=== PATIENT | female | born 1970 | race Caucasian/White ===

== ENCOUNTER 2017-01-17 20:23 | Emergency (ER) | payer MEDICARE, MEDICAID ==
[2017-01-17 22:46] VITALS: BP 144/84
--- NOTE | 2017-01-17 22:47 | ERNOTE ---
Upper Extremity HPI - General Extremities Pain Location: shoulder: left - pain and stiffness Time Seen by Provider: 01/17/17 22:32 Source: patient, family Exam Limitations: no limitations - Immun/Allergies/Home Medications Immunizations: IMMUNIZATION HX Immunizations Up to Date Yes History of Influenza Vaccine Yes Hx Pneumococcal Vaccination Yes Allergies/Adverse Reactions: Allergies Allergy/AdvReac Type Severity Reaction Status Date / Time No Known Allergies Allergy Verified 01/17/17 20:35 Home Medications: HOME MEDICATIONS glipiZIDE [Glucotrol] 5 mg PO BID 06/21/14 [Last Taken Unknown] metFORMIN HCL [Glucophage] 1,000 mg PO BIDWM 06/21/14 [Last Taken Unknown] Cyclobenzaprine HCl [Flexeril] 10 mg PO TID PRN #30 tab 01/17/17 [Last Taken Unknown] - History of Present Illness Narrative: Pt states she has pain in her left posterior shoulder and some into her left upper arm Occurred: other - 10 days ago she was lifting some totes Location of Incident: home Severity: moderate Method of Injury: Reports: no apparent injury Associated Symptoms: Reports: weakness, loss of power (lt arm) Review of Systems - Review of Systems Musculoskeletal: Present: See HPI. Absent: back pain, neck pain Skin: Absent: rash Neurological: Present: numbness, tingling - Patient's Past Medical History Patient History - Medical: Diabetes Type 2 Patient History - Cardiac/Respiratory: No pertinent hx Patient History - Cancer: No Hx of Cancer Patient History - Surgical Procedures: No surgical history Patient History - Other: None - Social History Living Situations: home Does anyone smoke in the home?: Yes Smoking Status: Current every day smoker Patient requests Smoking Cessation Consult: No Initiate information on Smoking Cessation: No Alcohol Use: none Drug Use: none - Immunizations Immunizations Up to Date: Yes Hx Pneumococcal Vaccination: Yes History of Influenza Vaccine: Yes Physical Exam - Physical Exam General Appearance: Present: wd/wn, alert, no apparent distress Neck: Present: normal inspection, nontender, supple, full range of motion, other - No pain with cervical compression or sidebending Respiratory: Present: no respiratory distress, no accessory muscle use Back Exam: Present: normal inspection, normal range of motion, no vertebral tenderness Extremity Exam: Present: normal range of motion, other - tenderness posterior shoulder along the spraspinatus, no weakness of shoulder muscles. some difficulty with getting patient to understand commands in muscle testing ED Progress - Vital Signs Vital Signs: Vital Signs 01/17/17 01/17/17 01/17/17 20:31 21:17 21:41 Temperature 36.3 C L Pulse Rate 108 H 91 77 Respiratory 20 18 18 Rate Blood Pressure 175/93 147/86 138/83 O2 Sat by Pulse 96 98 96 Oximetry - Progress/Reassessment Chief Complaint: Shoulder Injury/Pain Departure Clinical Impression: Left shoulder strain Qualifiers: Encounter type: initial encounter Qualified Code(s): S46.912A - Strain of unspecified muscle, fascia and tendon at shoulder and upper arm level, left arm , initial encounter - Departure Disposition: Home Follow Up Needed Condition: Good Instructions: Tendon Injury, Cryotherapy Additional Instructions: Take ibuprofen 2 tabs 3 times a day for 7-10 days. Use ice to the sore area of the shoulder. Follow up with your regular doctor if not improving Referrals: Blanca Solomon MD [Primary Care Provider] - Prescriptions: Cyclobenzaprine HCl [Flexeril] 10 mg PO TID PRN #30 tab PRN Reason: MUSCLE SPASMS
[2017-01-17] MEDS ORDERED: CYCLOBENZAPRINE HCL 10 MG TABLET ONE (22:52)
[2017-01-17] MEDS ORDERED: CYCLOBENZAPRINE HCL 10 MG TABLET PO ONE (22:52)
== END 2017-01-17 22:58 | disposition home or self-care (01) ==
LOC: ER 20:23
DX: S46.912A Strain of unspecified muscle, fascia and tendon at shoulder and upper arm level, left arm, initial encounter (principal); X50.9XXA Other and unspecified overexertion or strenuous movements or postures, initial encounter; Y93.9 Activity, unspecified; Y92.009 Unspecified place in unspecified non-institutional (private) residence as the place of occurrence of the external cause; Z72.0 Tobacco use; E11.9 Type 2 diabetes mellitus without complications

== ENCOUNTER 2017-04-20 11:22 | Day surgery (SDC) | payer MEDICARE, MEDICAID ==
--- NOTE | 2017-04-20 12:00 | OR ---
Anesthesia Pre Procedure Eval Pre Procedure Evaluation: Last Vital Signs Temp 36.4 C L 04/20/17 11:35 Pulse 81 04/20/17 11:35 Resp 16 04/20/17 11:35 BP 189/99 04/20/17 11:35 Pulse Ox 98 04/20/17 11:35 PRE PROCEDURE EVALUATION:: DATE: 04/20/2017 TIME: 1155 INDICATIONS: Radicular cervical neck pain. Herniated disc C6 7. PAST MEDICAL HISTORY: No previous epidural straight injections. EXAM: Lungs clear and equal. Heart rate regular. Patient complains of shoulder pain that radiates into her arm and into her hand. She complains of some numbness in her left hand and fingers. ASSESSMENT OF MEDICAL STATUS: Procedure risks and benefits were explained to and accepted by the patient. No contraindication to cervical epidural straight injection. PLANNED PROCEDURE : Fluoroscopy-guided cervical epidural sterile injection at C6 7. Home Medications: HOME MEDICATIONS metFORMIN HCL [Glucophage] 1,000 mg PO BIDWM 06/21/14 [Last Taken Unknown] ALPRAZolam [Xanax] 0.25 - 0.5 mg PO Q8H PRN 04/19/17 [Last Taken Unknown] Blood-Glucose Meter [Blood Glucose Monitoring] 1 each MC DAILY 04/19/17 [Last Taken Unknown] Fluticasone Propionate [Flonase] 2 spray NS DAILY PRN 04/19/17 [Last Taken Unknown] Loratadine [Claritin] 10 mg PO DAILY 04/19/17 [Last Taken Unknown] Naproxen Sodium [Aleve] 220 mg PO BID 04/19/17 [Last Taken Unknown] SUMAtriptan SUCCINATE [Imitrex] 50 mg PO DAILY PRN 04/19/17 [Last Taken Unknown] glipiZIDE [Glucotrol] 10 mg PO BIDAC 04/19/17 [Last Taken Unknown] Nicotine Polacrilex [Nicorette] 2 mg BC DAILY 04/20/17 [Last Taken Unknown]
[2017-04-20] MEDS ORDERED: DEXAMETHASONE SOD PHOSPHATE 10 MG/ML VIAL IJ ONE (12:40)
[2017-04-20] MEDS ORDERED: IOPAMIDOL 20 ML VIAL IJ ONE (12:41)
[2017-04-20] MEDS ORDERED: LIDOCAINE HCL/PF 5 ML VIAL IJ ONE (12:41)
--- NOTE | 2017-04-20 12:59 | OR ---
Anesthesia Procedure Note - Anesthesia Procedure Note Narrative: Vital Signs - Last Taken Temp 36.4 C L 04/20/17 11:35 Pulse 81 04/20/17 11:35 Resp 16 04/20/17 11:35 BP 189/99 04/20/17 11:35 Pulse Ox 98 04/20/17 11:35 04/20/17 12:55 ANESTHESIA PROCEDURE NOTE Date of procedure: 04/20/2017. Time of procedure: 1245. Performed by: Chandra Merrill CRNA [employer]: Itzel Goldman RN . Preprocedure diagnosis: Cervical neck pain. Radicular in nature. Left arm numbness and tingling. Numbness in left fingers.. Post procedure diagnosis: Same. Procedure: Fluoroscopy-guided cervical epidural steroid injection at C7-T1. Indications: Radicular cervical pain. Findings: Patient brought to operating room #2 and placed in a prone position. Back of neck was prepped with DuraPrep and draped sterilely. Fluoroscopy was used to identify the C7-T1 interspace. Skin and subcutaneous tissue was infiltrated with 5 mL of 1% Xylocaine at the C7-T1 interspace. A 22-gauge Touhy epidural needle was used to identify epidural space using loss-of- resistance technique. 1.5 mL of Isovue-200 contrast dye was injected to confirm epidural needle placement. 10 mg of dexamethasone and 5 mg 1% preservative-free lidocaine was injected into the epidural space. Epidural needle was removed intact. A Band-Aid was applied to the puncture site. Total fluoroscopy time 12.9 seconds. Total dose 2.48 m/gy EBL: Minimal. Fluids: N/A. Specimen: N/A. Post procedure condition: The patient tolerated the procedure well. No complications were noted. Thank you for this consultation Chandra Merrill CRNA
[2017-04-20 13:31] VITALS: BP 157/92
== END 2017-04-20 11:23 | disposition home or self-care (01) ==
LOC: AMB 11:22
PROVIDERS: ATTEND Orthopaedic Surgery Orthopaedic Surgery of the Spine
PROC: 3E0S3BZ Introduction of Anesthetic Agent into Epidural Space, Percutaneous Approach (ICD-10-PCS; 2017-04-20)
PROC: 3E0S33Z Introduction of Anti-inflammatory into Epidural Space, Percutaneous Approach (ICD-10-PCS; principal; 2017-04-20 12:00)
DX: M54.2 Cervicalgia (principal); R20.2 Paresthesia of skin

== ENCOUNTER 2018-08-22 15:35 | Observation (INO) | payer MEDICAID, MEDICARE ==
[2018-08-22] MEDS ORDERED: ADENOSINE 3 MG/ML DISP.SYRIN IV ONE (15:48)
--- NOTE | 2018-08-22 15:48 | ERNOTE ---
Dizziness ER Record Presenting Symptoms: dizziness Time Seen by Provider: 08/22/18 15:40 Source: patient Exam Limitations: no limitations Immunizations: IMMUNIZATION HX Immunizations Up to Date Yes History of Influenza Vaccine Yes Hx Pneumococcal Vaccination Yes Allergies/Adverse Reactions: Allergies Allergy/AdvReac Type Severity Reaction Status Date / Time No Known Allergies Allergy Verified 08/22/18 15:49 Home Medications: HOME MEDICATIONS metFORMIN HCL [Glucophage] 1,000 mg PO BIDWM 06/21/14 [Last Taken 08/22/18 09:00] Blood-Glucose Meter [Blood Glucose Monitoring] 1 ea MC DAILY 04/19/17 [Last Taken 08/22/18 01:00] Fluticasone Propionate [Flonase] 2 spray NS DAILY PRN 04/19/17 [Last Taken Unknown] Loratadine [Claritin] 10 mg PO DAILY PRN 04/19/17 [Last Taken Unknown] glipiZIDE [Glucotrol] 10 mg PO BIDAC 04/19/17 [Last Taken 08/22/18 09:00] alprazolam 0.5 mg tablet 0.25 - 0.5 mg PO Q8H PRN #30 tab 05/28/18 [Last Taken Unknown] Melatonin 10 mg PO HS 08/22/18 [Last Taken 08/21/18 21:00] - History of Present Illness Narrative: Patient had just left the store when she started to feel dizzy, went home and when symptoms persisted she came to the ER. She denies any palpitation, admits to chest pressure. She denies any other symptoms or significant recent problems, smokes, one soda a day, no drug use she is a diabetic and admits to not being very compliant with her diet over the holidays Date (Duration): 08/22/18 Time (Timing): 12:45 Timing and Duration: sudden onset Severity: max: mild Severity: currently: mild Associated Symptoms: Present: light headedness. Absent: hearing loss Usually:: Present: walks w/o assistance Modifying Factors - (Improves): Reports: nothing Modifying Factors - (Worsens): Reports: nothing Prior Treament: Denies: recently seen, similar symptoms before Review of Systems - Review of Systems Constitutional: Absent: recent illness, fever EYE: Absent: vision changes ENT: Absent: nose congestion, sore throat Respiratory: Absent: shortness of breath Cardiology: Present: See HPI, chest pain. Absent: palpitations Gastrointestinal/Abdominal: Absent: nausea, abdominal pain Genitourinary: Present: no symptoms reported Musculoskeletal: Absent: back pain Neurological: Present: dizziness/light-headedness. Absent: headache Medical History (Last Reviewed 08/22/18 @ 16:16 by Vandana Gauthier MD) Learning disability (Chronic) Onset Date: Unknown Diabetes mellitus type 2, noninsulin dependent (Chronic) Onset Date: Unknown Anxiety (Chronic) Onset Date: Unknown Surgical History: Surgical History (Last Reviewed 08/22/18 @ 16:16 by Vandana Gauthier MD) History of total right knee replacement Family History: Family History (Last Reviewed 08/22/18 @ 15:49 by Clement Hinkle RN) Father Alive and well Mother Alive and well Social History: Preferred Language Venezuelan (Last Updated 05/28/18 @ 15:06 by Blanca Solomon MD) No Social History Section defined Physical Exam - Physical Exam General Appearance: Present: wd/wn, alert, no apparent distress, anxious Respiratory: Present: no respiratory distress, normal breath sounds, chest nontender, lungs clear Cardiovascular/Chest: Present: no murmur, tachycardia Gastrointestinal/Abdominal: Present: normal bowel sounds, nontender, nondistended, soft Extremity Exam: Present: no edema Neurological Exam: Present: alert, oriented, normal mood/affect Skin Exam: Present: normal color, warm/dry Progress - Results and Orders Patient's Lab Results:: I have reviewed the patient's lab results. - Vital Signs Patient's Vital Signs:: I have reviewed the patient's vital signs. Vital Signs: Vital Signs 08/22/18 15:38 Temperature 36.1 C Pulse Rate 182 H Respiratory Rate 20 Blood Pressure 104/73 - EKG EKG: nonspecific ST T wave changes, other - SVTs at 182bpm EKG read: Interp. by me - X-Ray X-Ray #1 X-Ray: chest - no acute changes Interpretation: Interp. by me - Progress/Reassessment Chief Complaint: Dizziness Progress Note-Subjective: 08/22/18 15:54 repeat EKG after adenosine sinus tachycardia 08/22/18 17:17 patient feeling much better, no chest pain , HR high 90's discussed test results and recommended admission, patient and family agreed 08/22/18 17:18 discussed with sangeetha Nava to admit for observation for SVTs and hyperglycemia give 10 Units of insulin IV Departure Clinical Impression: SVT (supraventricular tachycardia), Diabetes mellitus type 2, noninsulin dependent, Hyperglycemia Chest pain Qualifiers: Chest pain type: unspecified Qualified Code(s): R07.9 - Chest pain, unspecified - Departure Disposition: Still a patient Condition: Stable
[2018-08-22 16:09] LABS: Hematocrit 46.8 % (37.0-47.0); Hemoglobin 16.8 gm/dL (12.5-16.0); Mean Cell Volume 87.8 fl (78-100); Mean Corpuscular Hemoglobin 31.5 pg (27-31); Mean Corpuscular Hgb Conc 35.9 g/dl (32-36); Mean Platelet Volume 11.7 fl (8-12.5); Neutrophil # 10.2 K/mm3 (1.3-6.0); Neutrophil % 74.3 % (42-75.0); Platelet Count 255 K/mm3 (150-450); Red Blood Count 5.33 M/mm3 (4.2-5.4); Red Cell Distribution Width 12.4 % (11.5-14.0); White Blood Count 13.7 K/mm3 (4.0-10.5)
[2018-08-22 16:25] LABS: Troponin I Less than 0.017 ng/mL (0.00-0.10)
[2018-08-22 16:38] LABS: ALT 53 U/L (19-67); AST 39 U/L (0-48); Albumin * 3.3 gm/dl (3.4-5.0); Alkaline Phosphatase * 96 U/L (50-170); Anion Gap 15.8 mmol/L (6.8-13.8); BUN/Creatinine Ratio 15.4 (9.0-21.6); Bilirubin, Total 0.4 mg/dL (0.0-1.1); Blood Urea Nitrogen 16 mg/dL (3-23); Ca. Corrected For Albumin 9.2 mg/dL (8.4-10.2); Carbon Dioxide 25.1 mmol/L (24-32.6); Chloride 99 mmol/L (97-106); Glucose * 585 mg/dL (70-110); Potassium 3.9 mmol/L (3.4-4.6); Sodium 136 mmol/L (132-142)
[2018-08-22 17:10] LABS: Urine Bilirubin Negative (NEGATIVE); Urine Blood Negative /ul (NEGATIVE); Urine Ketone Negative (NEGATIVE); Urine Nitrite Negative (NEGATIVE); Urine Protein 30 mg/dL (NEGATIVE); Urine Urobilinogen Normal (NORMAL)
[2018-08-22] MEDS ORDERED: INSULIN LISPRO 100 UNITS/ML VIAL IV ONE (17:23)
[2018-08-22] MEDS ORDERED: ASPIRIN 81 MG TAB.CHEW PO STA (17:28)
[2018-08-22 17:32] LABS: Urine Appearance Clear (CLEAR); Urine Color Yellow
[2018-08-22 17:33] LABS: Urine Bacteria TRACE; Urine RBC None Seen /hpf (0-5); Urine WBC 0-5 /hpf (0-5)
[2018-08-22] MEDS ORDERED: LORATADINE 10 MG TABLET PO PRN (20:08)
[2018-08-22] MEDS ORDERED: FLUTICASONE PROPIONATE 120 SPRAY INHALER NS PRN (20:08)
[2018-08-22] MEDS ORDERED: ALPRAZolam 0.5 MG TABLET PO PRN (20:08)
--- NOTE | 2018-08-22 20:23 | HP ---
Chief Complaint - Chief Complaint Date of Service: 08/22/18 Time of Service: 20:00 Chief Complaint: dizziness History of Present Illness: Patient with PMHx of diabetes reported feeling some dizziness and upper chest tightness earlier today. She took a meclizine to see if that would help her symptoms, without improvement. She also tried some of her boyfriend's ventolin, which also didn't help. Her diabetes is controlled with oral medications. She reports checking her blood sugar at home, and her machine read 150. Here in the ED, her glucose was greater than 500, so she is wondering if her home glucometer is unreliable. She has not had recent illness or received any steroids lately. On arrival, her heart rate was in the 180's, and she was given adenosine, and her heart rate improved to sinus rhythm. She states her chest tightness is no longer present. Has never been hospitalized for diabetes in the past. Medical History (Last Reviewed 08/22/18 @ 18:51 by Yen Rendon RN) Learning disability (Chronic) Onset Date: Unknown Diabetes mellitus type 2, noninsulin dependent (Chronic) Onset Date: Unknown Anxiety (Chronic) Onset Date: Unknown Surgical History: Surgical History (Last Updated 08/22/18 @ 18:52 by Yen Rendon RN) H/O arthroscopy of right knee History of total right knee replacement Family History: Family History (Last Reviewed 08/22/18 @ 15:49 by Clement Hinkle RN) Father Alive and well Mother Alive and well Social History: Patient Lives/Resources Home Utilized Occupation none Preferred Language Colombian Do you have any sikhism or Yes: Rastafarian cultural preference? Smoking Status Current every day smoker Have you smoked in the past 12 Yes months Do you dip or chew tobacco No Alcohol Use none Drug Use none (Last Updated 05/28/18 @ 15:06 by Blanca Solomon MD) No Social History Section defined Review Of Systems (GEN) - Review of Systems Generalized/Overall Review: Absent: Fever EENTM: Absent: Nose Congestion Respiratory: Absent: Cough, Shortness of Breath Cardiac: Present: Other - chest tightness. Absent: Edema Abdominal: Absent: Vomiting, Diarrhea Genitourinary: Absent: Dysuria Skin: Absent: Lesions Immunizations: IMMUNIZATION HX Immunizations Up to Date Yes History of Influenza Vaccine No Hx Pneumococcal Vaccination No Allergies/Adverse Reactions: Allergies Allergy/AdvReac Type Severity Reaction Status Date / Time No Known Allergies Allergy Verified 08/22/18 15:49 Home Medications: HOME MEDICATIONS metFORMIN HCL [Glucophage] 1,000 mg PO BIDWM 06/21/14 [Last Taken 08/22/18 09:00] Blood-Glucose Meter [Blood Glucose Monitoring] 1 ea MC DAILY 04/19/17 [Last Taken 08/22/18 01:00] Fluticasone Propionate [Flonase] 2 spray NS DAILY PRN 04/19/17 [Last Taken Unknown] Loratadine [Claritin] 10 mg PO DAILY PRN 04/19/17 [Last Taken Unknown] glipiZIDE [Glucotrol] 10 mg PO BIDAC 04/19/17 [Last Taken 08/22/18 09:00] alprazolam 0.5 mg tablet 0.25 - 0.5 mg PO Q8H PRN #30 tab 05/28/18 [Last Taken Unknown] Melatonin 10 mg PO HS 08/22/18 [Last Taken 08/21/18 21:00] Exam - Exam Vital Signs: Vital Signs - Last Taken Temp 36.8 C 08/22/18 18:00 Pulse 93 08/22/18 18:00 Resp 20 08/22/18 18:00 BP 162/90 H 08/22/18 18:00 Pulse Ox 95 08/22/18 18:00 Constitutional: Present: Alert, Oriented x3, Cooperative, Well developed, Obese Eye Exam: left eye: other - left eyelid droop, chronic per patient Respiratory: Present: normal breath sounds, no respiratory distress Cardiovascular/Chest: Present: regular rate, rhythm Abdomen: Present: soft, nontender, obese Neurologic: Present: normal mood/affect Appearance: Present: impaired insight Eye contact: Present: cooperative, good eye contact Thoughts: Present: other - somewhat tangential Diagnostic Studies: Abnormal Lab Results 08/22/18 08/22/18 08/22/18 Range/Units 16:03 16:03 17:01 WBC 13.7 H (4.0-10.5) K/mm3 Hgb 16.8 H (12.5-16.0) gm/dL MCH 31.5 H (27-31) pg Immature Gran % (Auto) 0.60 H (0.001-0.429) % Immature Gran # (Auto) 0.08 H (0.000-0.0310) K/mm3 Lymphocytes % 18.2 L (20-51) % Neutrophils # 10.2 H (1.3-6.0) K/mm3 Plasma Sodium 144 H (130-142) mmol/L Anion Gap 15.8 H (6.8-13.8) mmol/L Random Glucose 585 H* (70-110) mg/dL Albumin 3.3 L (3.4-5.0) gm/dl Urine Protein 30 H (NEGATIVE) mg/dL Urine Glucose (UA) >=1000 H (NEGATIVE) mg/dL Laboratory Results WBC 13.7 K/mm3 (4.0-10.5) H 08/22/18 16:03 RBC 5.33 M/mm3 (4.2-5.4) 08/22/18 16:03 Hgb 16.8 gm/dL (12.5-16.0) H 08/22/18 16:03 Hct 46.8 % (37.0-47.0) 08/22/18 16:03 MCV 87.8 fl (78-100) 08/22/18 16:03 MCH 31.5 pg (27-31) H 08/22/18 16:03 MCHC 35.9 g/dl (32-36) 08/22/18 16:03 RDW 12.4 % (11.5-14.0) 08/22/18 16:03 Plt Count 255 K/mm3 (150-450) 08/22/18 16:03 MPV 11.7 fl (8-12.5) 08/22/18 16:03 Immature Gran % (Auto) 0.60 % (0.001-0.429) H 08/22/18 16:03 Immature Gran # (Auto) 0.08 K/mm3 (0.000-0.0310) H 08/22/18 16:03 Neutrophils % 74.3 % (42-75.0) 08/22/18 16:03 Lymphocytes % 18.2 % (20-51) L 08/22/18 16:03 Monocytes % 5.0 % (0.0-9) 08/22/18 16:03 Eosinophils % 1.2 % (0.0-3.0) 08/22/18 16:03 Basophils % 0.7 % (0.0-1.0) 08/22/18 16:03 Nucleated RBC % 0.0 k/mm3 (0-1) 08/22/18 16:03 Neutrophils # 10.2 K/mm3 (1.3-6.0) H 08/22/18 16:03 Lymphocytes # 2.50 k/mm3 (1.5-3.5) 08/22/18 16:03 Monocytes # 0.7 k/mm3 (0.0-1.0) 08/22/18 16:03 Eosinophils # 0.2 k/mm3 (0.0-0.7) 08/22/18 16:03 Absolute Basophils 0.1 k/mm3 (0.0-0.1) 08/22/18 16:03 VBG pH 7.375 (7.32-7.43) 08/22/18 16:51 Sodium 136 mmol/L (132-142) 08/22/18 16:03 Plasma Sodium 144 mmol/L (130-142) H 08/22/18 16:03 Potassium 3.9 mmol/L (3.4-4.6) 08/22/18 16:03 Chloride 99 mmol/L (97-106) 08/22/18 16:03 Carbon Dioxide 25.1 mmol/L (24-32.6) 08/22/18 16:03 Anion Gap 15.8 mmol/L (6.8-13.8) H 08/22/18 16:03 BUN 16 mg/dL (3-23) 08/22/18 16:03 Creatinine 1.04 mg/dL (0.4-1.4) 08/22/18 16:03 Est GFR (Non-Af Amer) 60 mL/min (60-130) D 08/22/18 16:03 BUN/Creatinine Ratio 15.4 (9.0-21.6) 08/22/18 16:03 Random Glucose 585 mg/dL (70-110) H* 08/22/18 16:03 Calcium 9.0 mg/dL (7.9-10.9) 08/22/18 16:03 Calcium Adj for Albumin 9.2 mg/dL (8.4-10.2) 08/22/18 16:03 Total Bilirubin 0.4 mg/dL (0.0-1.1) 08/22/18 16:03 AST 39 U/L (0-48) 08/22/18 16:03 ALT 53 U/L (19-67) 08/22/18 16:03 Alkaline Phosphatase 96 U/L (50-170) 08/22/18 16:03 Troponin I Less than 0.017 ng/mL (0.00-0.10) 08/22/18 16:03 Total Protein 7.0 gm/dL (6.2-8.2) 08/22/18 16:03 Albumin 3.3 gm/dl (3.4-5.0) L 08/22/18 16:03 TSH 0.925 uIU/mL (0.358-3.74) 08/22/18 16:03 Urine Color Yellow 08/22/18 17:01 Urine Appearance Clear (CLEAR) 08/22/18 17:01 Urine pH 6.0 pH (5.0-7.0) 08/22/18 17:01 Ur Specific Marshall 1.010 SP.GR. (1.005-1.010) 08/22/18 17:01 Urine Protein 30 mg/dL (NEGATIVE) H 08/22/18 17:01 Urine Glucose (UA) >=1000 mg/dL (NEGATIVE) H 08/22/18 17:01 Urine Ketones Negative mg/dL (NEGATIVE) 08/22/18 17:01 Urine Blood Negative /ul (NEGATIVE) 08/22/18 17:01 Urine Nitrate Negative (NEGATIVE) 08/22/18 17:01 Urine Bilirubin Negative mg/dl (NEGATIVE) 08/22/18 17:01 Prot Sulfosalicylic Acd 1+ mg/dL (0) 08/22/18 17:01 Urine Urobilinogen Normal EU/dl (NORMAL) 08/22/18 17:01 Ur Leukocyte Esterase Negative /ul (NEGATIVE) 08/22/18 17:01 Urine RBC None seen /hpf (0-5) 08/22/18 17:01 Urine WBC 0-5 /hpf (0-5) 08/22/18 17:01 Ur Epithelial Cells 0-5 /hpf (0-5) 08/22/18 17:01 Urine Bacteria Trace (NONE) 08/22/18 17:01 Urine Culture Comments No culture indicated 08/22/18 17:01 Serum Ketones Negative (NEGATIVE) 08/22/18 16:03 Assessment/Plan - Assessment/Plan (1) SVT (supraventricular tachycardia) Assessment: May have been secondary to her blood glucose of 585. Improved after adenosine. Continue telemetry. If she were to have persistent HR greater than 100, will add 25 mg metoprolol. Initial troponin negative, repeat pending. If chest tightness were to recur, will repeat serial EKGs. Problem: Acute (2) Hyperglycemia Assessment: Patient does not believe her glucose has been greater than 500 on the past. Is not in DKA. She was given 10 U humalog IV in the ED, and she is receiving SSI. Will continue to monitor her insulin requirements. May need to DC with long acting insulin. Most recent blood glucose was 400 two hours ago. Glucose checks with meals and bedtime. She admits to having a poor diet with lots of sweets lately, but it is more likely that her diabetes is progressing, and this is the source of her very elevated glucose. Problem: Acute (3) Diabetes mellitus type 2, noninsulin dependent Assessment: Continue home metformin, glipizide. Would strongly prefer to obtain A1C to help determine if she requires insulin on discharge, but she is in observation status, and unable to order this in [facility]. "Learning disability" is listed on her problem list, and she may not have the ability to properly administer sliding scale insulin without supervision. Problem: Chronic (4) Anxiety Assessment: continue home prn xanax. Melatonin for sleep. Problem: Chronic
[2018-08-22] MEDS ORDERED: MELATONIN 3,000 MCG TABLET PO SCH (21:00)
[2018-08-22] MEDS: INSULIN LISPRO 100 UNITS/ML VIAL SC SCH (21:36)
[2018-08-22] MEDS ORDERED: IBUPROFEN 400 MG TABLET PO PRN (21:55)
[2018-08-22] MEDS ORDERED: IBUPROFEN 400 MG TABLET ONE (22:01)
[2018-08-23] MEDS ORDERED: ALPRAZolam 0.5 MG TABLET PO PRN (06:30)
[2018-08-23] MEDS ORDERED: INSULIN LISPRO 100 UNITS/ML VIAL SC SCH (07:00)
[2018-08-23] MEDS ORDERED: glipiZIDE 10 MG TABLET PO SCH (07:00)
[2018-08-23] MEDS: INSULIN LISPRO 100 UNITS/ML VIAL SC SCH ×2 (07:44→11:57)
[2018-08-23 08:13] LABS: Hemoglobin A1C 9.5 % (4.00-6.0)
--- NOTE | 2018-08-23 10:11 | PN ---
Subjective - Date and Time Seen Date: 08/23/18 Time: 09:54 Objective - Review of Systems Generalized/Overall Review: Denies: Fever Respiratory: Denies: Shortness of Breath Cardiac: Denies: Chest Pain, Palpitations Abdominal: Denies: Vomiting, Abdominal Pain Genitourinary Symptoms: Denies: Dysuria - Vitals Vitals: Last Vital Signs Temp 36.1 C 08/23/18 07:00 Pulse 78 08/23/18 07:00 Resp 16 08/23/18 07:00 BP 145/75 H 08/23/18 07:00 Pulse Ox 93 08/23/18 07:00 - Abnormal Lab Findings Abnormal Lab Findings: Abnormal Lab Results 08/22/18 08/22/18 08/22/18 Range/Units 07:45 16:03 16:03 WBC 13.7 H (4.0-10.5) K/mm3 Hgb 16.8 H (12.5-16.0) gm/dL MCH 31.5 H (27-31) pg Immature Gran % (Auto) 0.60 H (0.001-0.429) % Immature Gran # (Auto) 0.08 H (0.000-0.0310) K/mm3 Lymphocytes % 18.2 L (20-51) % Neutrophils # 10.2 H (1.3-6.0) K/mm3 Plasma Sodium 144 H (130-142) mmol/L Anion Gap 15.8 H (6.8-13.8) mmol/L Random Glucose 585 H* (70-110) mg/dL Hemoglobin A1c 9.5 H (4.00-6.0) % Albumin 3.3 L (3.4-5.0) gm/dl Urine Protein (NEGATIVE) mg/dL Urine Glucose (UA) (NEGATIVE) mg/dL 08/22/18 Range/Units 17:01 WBC (4.0-10.5) K/mm3 Hgb (12.5-16.0) gm/dL MCH (27-31) pg Immature Gran % (Auto) (0.001-0.429) % Immature Gran # (Auto) (0.000-0.0310) K/mm3 Lymphocytes % (20-51) % Neutrophils # (1.3-6.0) K/mm3 Plasma Sodium (130-142) mmol/L Anion Gap (6.8-13.8) mmol/L Random Glucose (70-110) mg/dL Hemoglobin A1c (4.00-6.0) % Albumin (3.4-5.0) gm/dl Urine Protein 30 H (NEGATIVE) mg/dL Urine Glucose (UA) >=1000 H (NEGATIVE) mg/dL - Exam Constitutional: Present: Alert, Oriented x3, Cooperative, Obese Respiratory: Present: normal breath sounds, no respiratory distress Cardiovascular/Chest: Present: regular rate, rhythm Abdomen: Present: soft, nontender, obese Extremity: Absent: lower extremity edema Eye contact: Present: other - mild left eyelid droop Assessment/Plan - Problems/Diagnosis (1) SVT (supraventricular tachycardia) Problem: Resolved Narrative: Improved after adenosine in the ED, and has not recurred. Likely secondary to very elevated blood glucose. (2) Hyperglycemia Problem: Acute Narrative: Improved after 10 U humalog IV in the ED, and SC SSI overnight. Has received 10 U SC humalog, making her total insulin 10 U over approximately 16 hours. (3) Diabetes mellitus type 2, noninsulin dependent Problem: Chronic Narrative: She is prescribed metformin and glipizide at home. Her A1C is 9.5%, indicating she needs insulin for more diabetic control. Discussed with her this morning, and she is not sure if she would be able to give herself insulin, and her boyfriend feels like she is too shaky. [employer] consult placed for education regarding better food choices. Will DC with a simple regimen, 10 U lantus daily, and have her follow up with her PCP. Insulin is necessary to avoid sequela. Her daily dose will likely be higher. (4) Anxiety Problem: Chronic Narrative: Continue home xanax.
--- NOTE | 2018-08-23 10:20 | DS ---
(1) SVT (supraventricular tachycardia) Problem: Resolved (2) Hyperglycemia Problem: Acute (3) Diabetes mellitus type 2, noninsulin dependent Problem: Chronic (4) Anxiety Problem: Chronic Description of Stay: Patient with PMHx of type II diabetes on oral meds, anxiety, and a learning disability reported feeling some dizziness and upper chest tightness. She took a meclizine to see if that would help her symptoms, without improvement. She also tried some of her boyfriend's ventolin, which also didn't help. She reported checking her blood sugar at home, and her machine read 150. In the ED, her glucose was greater than 500, so she is wondering if her home glucometer is unreliable. She had not had recent illness or received any steroids lately. On arrival, her heart rate was in the 180's, and she was given adenosine, and her heart rate improved to sinus rhythm, and chest tightness resolved and did not recur. Her blood glucose was decrease slowly with 10 U IV humalog, and low dose sliding scale insulin. She was given a total of 10 U insulin during her stay. A1C was 9.5%, and discussed starting daily insulin with her. [employer] referral placed to discuss better food choices. Will DC with 10 U lantus daily, and have her check her glucose 3 times a day initially. She felt comfortable going home on the day of discharge. Procedures Performed: none Results and Findings: Lab Pending Results 08/22/18 07:45: Mean Blood Glucose 230, Hemoglobin A1c 9.5 H 08/22/18 16:03: WBC 13.7 H, RBC 5.33, Hgb 16.8 H, Hct 46.8, MCV 87.8, MCH 31.5 H, MCHC 35.9, RDW 12.4, Plt Count 255, MPV 11.7, Immature Gran % (Auto) 0.60 H, Immature Gran # (Auto) 0.08 H, Neutrophils % 74.3, Lymphocytes % 18.2 L, Monocytes % 5.0, Eosinophils % 1.2, Basophils % 0.7, Nucleated RBC % 0.0, Neutrophils # 10.2 H, Lymphocytes # 2.50, Monocytes # 0.7, Eosinophils # 0.2, Absolute Basophils 0.1 08/22/18 16:03: Sodium 136, Plasma Sodium 144 H, Potassium 3.9, Chloride 99, Carbon Dioxide 25.1, Anion Gap 15.8 H, BUN 16, Creatinine 1.04, Est GFR (Non-Af Amer) 60 D, BUN/Creatinine Ratio 15.4, Random Glucose 585 H*, Calcium 9.0, Calcium Adj for Albumin 9.2, Total Bilirubin 0.4, AST 39, ALT 53, Alkaline Phosphatase 96, Troponin I Less than 0.017, Total Protein 7.0, Albumin 3.3 L 08/22/18 16:03: TSH 0.925 08/22/18 16:03: Serum Ketones Negative 08/22/18 16:51: VBG pH 7.375 08/22/18 17:01: Urine Color Yellow, Urine Appearance Clear, Urine pH 6.0, Ur Specific [place] 1.010, Urine Protein 30 H, Urine Glucose (UA) >=1000 H, Urine Ketones Negative, Urine Blood Negative, Urine Nitrate Negative, Urine Bilirubin Negative, Prot Sulfosalicylic Acd 1+, Urine Urobilinogen Normal, Ur Leukocyte Esterase Negative, Urine RBC None seen, Urine WBC 0-5, Ur Epithelial Cells 0-5, Urine Bacteria Trace, Urine Culture Comments No culture indicated 08/22/18 23:30: Troponin I 0.085 Discharge Location: Home Disposition: Home self-care Condition: Stable Discharge Activity: Activity as tolerated Discharge Diet: Consistent carbs Referrals: Blanca Solomon MD [Primary Care Provider] - Prescriptions (Any new or edited meds): Insulin Glargine,Hum.rec.anlog [Lantus Solostar] 10 unit SQ DAILY #7 insuln.pen Complete Home Medications List: Complete Home Medication List: metFORMIN HCL [Glucophage] 1,000 mg PO BIDWM 06/21/14 Blood-Glucose Meter [Blood Glucose Monitoring] 1 ea MC DAILY 04/19/17 Fluticasone Propionate [Flonase] 2 spray NS DAILY PRN 04/19/17 Loratadine [Claritin] 10 mg PO DAILY PRN 04/19/17 glipiZIDE [Glucotrol] 10 mg PO BIDAC 04/19/17 alprazolam 0.5 mg tablet 0.25 - 0.5 mg PO Q8H PRN #30 tab 05/28/18 Melatonin 10 mg PO HS 08/22/18 Insulin Glargine,Hum.rec.anlog [Lantus Solostar] 10 unit SQ DAILY #7 insuln.pen 08/23/18
[2018-08-23 13:26] VITALS: BP 176/98
== END 2018-08-23 13:23 | disposition home or self-care (01) ==
LOC: ER 15:35 → MS 15:35
PROVIDERS: ADMIT Family Medicine; ATTEND Family Medicine
DX: F41.9 Anxiety disorder, unspecified; E11.65 Type 2 diabetes mellitus with hyperglycemia; I47.1 Supraventricular tachycardia
CPT/HCPCS: 36415; 71010; 71045; 80053; 81001; 82009; 82800; 83036; 84443; 84484; 85025; 93005; 96372; 96374; 96375; 99285; G0378

== ENCOUNTER 2018-10-03 19:20 | Observation (INO) ==
[2018-10-03] MEDS ORDERED: ADENOSINE 3 MG/ML DISP.SYRIN IV ONE (19:42)
[2018-10-03] MEDS ORDERED: NORMAL SALINE 1,000 ML IV ONE (19:47)
--- NOTE | 2018-10-03 20:01 | ERNOTE ---
<Vandana Gauthier - Last Filed: 10/03/18 19:45> Chest Pain/Cardiac HPI Chief Complaint: Palpitations Time Seen by Provider: 10/03/18 19:30 Source: patient Exam Limitations: no limitations Immunizations: IMMUNIZATION HX Immunizations Up to Date Yes History of Influenza Vaccine No Hx Pneumococcal Vaccination No Allergies/Adverse Reactions: Allergies No Known Allergies Allergy (Verified 10/01/18 11:08) Home Medications: HOME MEDICATIONS Blood-Glucose Meter [Blood Glucose Monitoring] 1 ea MC DAILY 04/19/17 [Last Taken 08/22/18 01:00] Fluticasone Propionate [Flonase] 2 spray NS DAILY PRN 04/19/17 [Last Taken Unknown] Loratadine [Claritin] 10 mg PO DAILY PRN 04/19/17 [Last Taken Unknown] alprazolam 0.5 mg tablet 0.25 - 0.5 mg PO Q8H PRN #30 tab 05/28/18 [Last Taken Unknown] Melatonin 10 mg PO HS 08/22/18 [Last Taken 08/21/18 21:00] Insulin Glargine,Hum.rec.anlog [Lantus Solostar] 10 unit SQ DAILY #7 insuln.pen 08/23/18 [Last Taken Unknown] flash glucose scanning reader See Dose Instructions .ROUTE .MEDSUPPLY #1 ea 09/03/18 [Last Taken Unknown] flash glucose sensor kit See Dose Instructions .ROUTE .MEDSUPPLY #1 ea 09/03/18 [Last Taken Unknown] metformin 1,000 mg tablet 1,000 mg PO BID #60 tab 09/09/18 [Last Taken Unknown] cefdinir 300 mg capsule 300 mg PO BID 10 Days #20 cap 10/01/18 [Last Taken Unknown] Narrative: Patient was getting ready to eat when she started to feel lightheaded and had slight chest pressure, denies any palpitation. She has had similar two months ago, had SVTs that responded to adenosine. She was admitted at that times as she was hyperglycemic as well, has been on insulin since, no other similar episodes, no other heart history. Three days ago she started to have sinus pressure and drainage, was started on cefdinir two days ago Date (Duration): 10/03/18 Time (Timing): 17:30 Timing: constant Severity/Quality: mild, pressure Location: central Chest Pain Radiation: no radiation Prior Chest Pain/Cardiac Workup: Reports: prior chest pain Review of Systems - Review of Systems Constitutional: Present: recent illness. Absent: fever, chills EYE: Absent: vision changes ENT: Present: nose congestion, nasal drainage. Absent: sore throat Respiratory: Present: cough. Absent: shortness of breath Cardiology: Present: See HPI, chest pain. Absent: palpitations Gastrointestinal/Abdominal: Absent: nausea, vomiting Musculoskeletal: Absent: back pain Neurological: Absent: headache Medical History (Last Reviewed 10/03/18 @ 19:59 by Vandana Gauthier MD) Learning disability (Chronic) Onset Date: Unknown Diabetes mellitus type 2, noninsulin dependent (Chronic) Onset Date: Unknown Anxiety (Chronic) Onset Date: Unknown Surgical History: Surgical History (Last Reviewed 10/03/18 @ 19:59 by Vandana Gauthier MD) H/O arthroscopy of right knee Family History: Family History (Last Reviewed 10/03/18 @ 19:41 by Amna Goldman RN) Father Alive and well Mother Alive and well Social History: Preferred Language Paraguayan Do you have any buddhism or No cultural preference? Smoking Status Current every day smoker (Last Updated 10/01/18 @ 12:49 by Blanca Solomon MD) No Social History Section defined Physical Exam - Physical Exam General Appearance: Present: wd/wn, alert, no apparent distress Respiratory: Present: no respiratory distress, normal breath sounds, no accessory muscle use, chest nontender, lungs clear Cardiovascular/Chest: Present: no murmur, normal peripheral pulses, tachycardia Gastrointestinal/Abdominal: Present: normal bowel sounds, nontender Extremity Exam: Present: no edema Neurological Exam: Present: alert, oriented, normal mood/affect Skin Exam: Present: normal color, warm/dry Progress - Vital Signs Patient's Vital Signs:: I have reviewed the patient's vital signs. Vital Signs: Vital Signs 10/03/18 19:34 Temperature 36.7 C Pulse Rate 193 H Respiratory Rate 23 H Blood Pressure 153/112 H - EKG EKG #1 EKG: supraventricular tachycardia, nonspecific ST T wave changes EKG read: Interp. by me EKG #2 EKG: NSR - sinus tachycardia, nonspecific ST T wave changes - improved EKG read: Interp. by me - Progress/Reassessment Chief Complaint: Palpitations Progress Note-Subjective: 10/03/18 19:46 after adenosine HR briefly at 40bpm repeat EKG sinus tachycardia, patient symptoms have resolved - Transfer of Care Physician Sign Out: Vandana Gauthier Receiving Physician: Mauricio Santillan Pending Results: Labs Expected Disposition: Discharge Departure Clinical Impression: SVT (supraventricular tachycardia), Elevated troponin - Departure Disposition: Still a patient Condition: Stable <Mauricio Santillan - Last Filed: 10/03/18 21:50> Chest Pain/Cardiac HPI Immunizations: IMMUNIZATION HX Immunizations Up to Date Yes History of Influenza Vaccine No Hx Pneumococcal Vaccination No Medical History (Last Reviewed 10/03/18 @ 19:59 by Vandana Gauthier MD) Learning disability (Chronic) Onset Date: Unknown Diabetes mellitus type 2, noninsulin dependent (Chronic) Onset Date: Unknown Anxiety (Chronic) Onset Date: Unknown Surgical History: Surgical History (Last Reviewed 10/03/18 @ 19:59 by Vandana Gauthier MD) H/O arthroscopy of right knee Family History: Family History (Last Reviewed 10/03/18 @ 19:41 by Amna Goldman RN) Father Alive and well Mother Alive and well Social History: Preferred Language [place]ayan Do you have any buddhism or No cultural preference? Smoking Status Current every day smoker (Last Updated 10/01/18 @ 12:49 by Blanca Solomon MD) No Social History Section defined Progress - Results and Orders Patient's Lab Results:: I have reviewed the patient's lab results. Results and Orders: Laboratory Tests 10/03/18 10/03/18 19:55 19:55 WBC 12.8 H Hgb 16.3 H Hct 46.4 Plt Count 264 Sodium 137 Potassium 3.8 Chloride 102 BUN 18 Creatinine 0.75 Random Glucose 297 H Calcium 9.4 Total Bilirubin 0.3 AST 21 ALT 27 Alkaline Phosphatase 77 Troponin I 0.164 H* Total Protein 7.7 Albumin 3.7 TSH 1.070 - Vital Signs Patient's Vital Signs:: I have reviewed the patient's vital signs. Vital Signs: Vital Signs 10/03/18 19:30 10/03/18 19:34 10/03/18 20:00 Temperature 36.7 C Pulse Rate 194 H 193 H 110 H Respiratory Rate 23 H 23 H Blood Pressure 153/112 H 148/86 H O2 Sat by Pulse Oximetry 96 - Progress/Reassessment Progress:: Improved Progress Note-Subjective: 10/03/18 20:[address] Chamorro at [facility] he suggested I talk to Cardiology spoke to Dr. Martinez in cardiology and he felt that the elevated troponin was entirely due to the SVT and suggested a beta rebecca and observation. 10/03/18 21:10 10/03/18 21:[address] Garcia and he agrees with observation admission.
[2018-10-03 20:05] LABS: Hematocrit 46.4 % (37.0-47.0); Hemoglobin 16.3 gm/dL (12.5-16.0); Mean Cell Volume 90.1 fl (78-100); Mean Corpuscular Hemoglobin 31.7 pg (27-31); Mean Corpuscular Hgb Conc 35.1 g/dl (32-36); Mean Platelet Volume 11.1 fl (8-12.5); Neutrophil # 9.1 K/mm3 (1.3-6.0); Neutrophil % 71.4 % (42-75.0); Platelet Count 264 K/mm3 (150-450); Red Blood Count 5.15 M/mm3 (4.2-5.4); Red Cell Distribution Width 12.9 % (11.5-14.0); White Blood Count 12.8 K/mm3 (4.0-10.5)
[2018-10-03 20:26] LABS: Albumin * 3.7 gm/dl (3.4-5.0); Anion Gap 12.4 mmol/L (6.8-13.8); Bilirubin, Total 0.3 mg/dL (0.0-1.1); Ca. Corrected For Albumin 9.3 mg/dL (8.4-10.2); Calcium * 9.4 mg/dL (7.9-10.9); Carbon Dioxide 26.4 mmol/L (24-32.6); Potassium 3.8 mmol/L (3.4-4.6); TSH * 1.07 uIU/mL (0.358-3.74); Total Protein 7.7 gm/dL (6.2-8.2)
[2018-10-03 20:28] LABS: Troponin I 0.164 ng/mL (0.00-0.10)
[2018-10-03] MEDS ORDERED: ATENOLOL 50 MG TABLET PO ONE (21:16)
[2018-10-03] MEDS ORDERED: ALPRAZolam 0.25 MG TABLET PO ONE (22:07)
[2018-10-03] MEDS ORDERED: FLUTICASONE PROPIONATE 120 SPRAY INHALER NS ONE (22:59)
[2018-10-03] MEDS: FLUTICASONE PROPIONATE 120 SPRAY INHALER NS SCH (23:28)
[2018-10-04] MEDS ORDERED: ALPRAZolam 0.25 MG TABLET PO PRN (07:07)
[2018-10-04] MEDS ORDERED: FLUTICASONE PROPIONATE 120 SPRAY INHALER NS PRN (07:07)
[2018-10-04] MEDS ORDERED: LORATADINE 10 MG TABLET PO PRN (07:07)
[2018-10-04] MEDS ORDERED: METOPROLOL TARTRATE 50 MG TABLET PO SCH (07:15)
[2018-10-04] MEDS: FLUTICASONE PROPIONATE 120 SPRAY INHALER NS SCH (08:29)
--- NOTE | 2018-10-04 08:38 | HP ---
Chief Complaint - Chief Complaint Date of Service: 10/04/18 Time of Service: 08:36 Chief Complaint: lightheadedness History of Present Illness: Cristy Roman, is a 48-year-old white female, patient of Dr. Solomon, with past medical history of generalized anxiety disorder, diabetes mellitus type 2, recent episode of SVT 2 months ago, recent diagnosis of acute sinusitis and started on Cefdinir, who was admitted on 10/03/2018 for lightheadedness. The patient was seen by her primary care physician for acute sinusitis and was started on Ceftin year 2-3 days ago. She was told that it could going to bronchitis. Yesterday she felt lightheaded after taking her antibiotic and was worried and went to our emergency room. She denied chest pain or palpitations or shortness of breath. She was found to be in supraventricular tachycardia with a ventricular rate of 192. She was given IV adenosine 6 mg x 1 and converted to normal sinus tachycardia. Her troponin was elevated at 0.168 and the ED physician was able to talk to the cardiology in [facility] and they recommended to put her in for observation and put her on a beta rebecca and to schedule a follow-up with them. The patient overnight has been in normal sinus rhythm. Her repeat troponin is 0.15. Her EKG showed normal sinus rhythm with probable left ventricular hypertrophy by voltage criteria consider normal variant. She is chest pain-free. Medical History (Last Reviewed 10/03/18 @ 22:47 by Abbey Mei RN) Learning disability (Chronic) Onset Date: Unknown Diabetes mellitus type 2, noninsulin dependent (Chronic) Onset Date: Unknown Anxiety (Chronic) Onset Date: Unknown Surgical History: Surgical History (Last Reviewed 10/03/18 @ 22:47 by Abbey Mei RN) H/O arthroscopy of right knee Family History: Family History (Last Reviewed 10/03/18 @ 22:49 by Abbey Mei RN) Father Alive and well Mother Alive and well Social History: Patient Lives/Resources With Spouse Utilized Occupation unemployed Preferred Language Welsh Do you have any tenriism or Yes: religion cultural preference? Smoking Status Current every day smoker Have you smoked in the past 12 Yes months Do you dip or chew tobacco No (Last Updated 10/01/18 @ 12:49 by Blanca Solomon MD) No Social History Section defined Review Of Systems (GEN) - Review of Systems Generalized/Overall Review: Absent: Weakness, Fever EENTM: Absent: Blurred Vision Respiratory: Absent: Cough, Shortness of Breath, Orthopnea Cardiac: Absent: Chest Pain, Edema, Palpitations Abdominal: Absent: Nausea, Vomiting Genitourinary: Absent: Urgency, Frequency Musculoskeletal: Absent: Joint Pain, Back Pain Neurological: Present: Anxiety, Other - lightheaded- resolved Skin: Absent: Rash, Bruising Endocrine: Absent: Intolerance to Heat, Increased Hunger Immunizations: IMMUNIZATION HX Immunizations Up to Date Yes History of Influenza Vaccine No Hx Pneumococcal Vaccination No Allergies/Adverse Reactions: Allergies Allergy/AdvReac Type Severity Reaction Status Date / Time No Known Allergies Allergy Verified 10/03/18 22:37 Home Medications: HOME MEDICATIONS Blood-Glucose Meter [Blood Glucose Monitoring] 1 ea MC DAILY 04/19/17 [Last Taken 10/03/18 17:00] Fluticasone Propionate [Flonase] 2 spray NS DAILY PRN 04/19/17 [Last Taken 10/02/18] Loratadine [Claritin] 10 mg PO DAILY PRN 04/19/17 [Last Taken Unknown] alprazolam 0.5 mg tablet 0.25 - 0.5 mg PO Q8H PRN #30 tab 05/28/18 [Last Taken Unknown] Melatonin 10 mg PO HS 08/22/18 [Last Taken 10/02/18] Insulin Glargine,Hum.rec.anlog [Lantus Solostar] 10 unit SQ DAILY #7 insuln.pen 08/23/18 [Last Taken 10/03/18 09:00] flash glucose scanning reader See Dose Instructions .ROUTE .MEDSUPPLY #1 ea 09/03/18 [Last Taken Unknown] flash glucose sensor kit See Dose Instructions .ROUTE .MEDSUPPLY #1 ea 09/03/18 [Last Taken Unknown] metformin 1,000 mg tablet 1,000 mg PO BID #60 tab 09/09/18 [Last Taken 10/03/18 17:00] Amoxicillin 500 mg PO BID #14 cap 10/04/18 [Last Taken Unknown] Aspirin [Aspirin EC] 81 mg PO DAILY #30 tablet 10/04/18 [Last Taken Unknown] Metoprolol Tartrate [Lopressor] 50 mg PO Q12H #60 tab 10/04/18 [Last Taken Unknown] Exam - Exam Vital Signs: Vital Signs - Last Taken Temp 36.4 C 10/04/18 07:48 Pulse 64 10/04/18 07:48 Resp 20 10/04/18 07:48 BP 151/77 H 10/04/18 07:48 Pulse Ox 95 10/04/18 07:48 Constitutional: Present: Alert, Oriented x3, Cooperative ENT Exam: Present: hearing grossly normal Eye Exam: bilateral eye: normal inspection, PERRL, EOMI Neck: Present: supple Respiratory: Present: normal breath sounds, No rales, No wheezing Cardiovascular/Chest: Present: regular rate, rhythm, no JVD, no murmur Abdomen: Present: Normal bowel sounds, nontender, nondistended Extremity: Present: no pedal edema, no calf tenderness Diagnostic Studies: Abnormal Lab Results 10/03/18 10/03/18 10/04/18 Range/Units 19:55 19:55 07:25 WBC 12.8 H (4.0-10.5) K/mm3 Hgb 16.3 H (12.5-16.0) gm/dL MCH 31.7 H (27-31) pg Immature Gran % (Auto) 0.50 H (0.001-0.429) % Immature Gran # (Auto) 0.06 H (0.000-0.0310) K/mm3 Neutrophils # 9.1 H (1.3-6.0) K/mm3 BUN/Creatinine Ratio 24.0 H (9.0-21.6) Random Glucose 297 H (70-110) mg/dL Troponin I 0.164 H* 0.158 H* (0.00-0.10) ng/mL Laboratory Results WBC 12.8 K/mm3 (4.0-10.5) H 10/03/18 19:55 RBC 5.15 M/mm3 (4.2-5.4) 10/03/18 19:55 Hgb 16.3 gm/dL (12.5-16.0) H 10/03/18 19:55 Hct 46.4 % (37.0-47.0) 10/03/18 19:55 MCV 90.1 fl (78-100) 10/03/18 19:55 MCH 31.7 pg (27-31) H 10/03/18 19:55 MCHC 35.1 g/dl (32-36) 10/03/18 19:55 RDW 12.9 % (11.5-14.0) 10/03/18 19:55 Plt Count 264 K/mm3 (150-450) 10/03/18 19:55 MPV 11.1 fl (8-12.5) 10/03/18 19:55 Immature Gran % (Auto) 0.50 % (0.001-0.429) H 10/03/18 19:55 Immature Gran # (Auto) 0.06 K/mm3 (0.000-0.0310) H 10/03/18 19:55 Neutrophils % 71.4 % (42-75.0) 10/03/18 19:55 Lymphocytes % 22.1 % (20-51) 10/03/18 19:55 Monocytes % 3.9 % (0.0-9) 10/03/18 19:55 Eosinophils % 1.6 % (0.0-3.0) 10/03/18 19:55 Basophils % 0.5 % (0.0-1.0) 10/03/18 19:55 Nucleated RBC % 0.0 k/mm3 (0-1) 10/03/18 19:55 Neutrophils # 9.1 K/mm3 (1.3-6.0) H 10/03/18 19:55 Lymphocytes # 2.83 k/mm3 (1.5-3.5) 10/03/18 19:55 Monocytes # 0.5 k/mm3 (0.0-1.0) 10/03/18 19:55 Eosinophils # 0.2 k/mm3 (0.0-0.7) 10/03/18 19:55 Absolute Basophils 0.1 k/mm3 (0.0-0.1) 10/03/18 19:55 Sodium 137 mmol/L (132-142) 10/03/18 19:55 Plasma Sodium 140 mmol/L (130-142) 10/03/18 19:55 Potassium 3.8 mmol/L (3.4-4.6) 10/03/18 19:55 Chloride 102 mmol/L (97-106) 10/03/18 19:55 Carbon Dioxide 26.4 mmol/L (24-32.6) 10/03/18 19:55 Anion Gap 12.4 mmol/L (6.8-13.8) 10/03/18 19:55 BUN 18 mg/dL (3-23) 10/03/18 19:55 Creatinine 0.75 mg/dL (0.4-1.4) 10/03/18 19:55 Est GFR (Non-Af Amer) 87 mL/min (60-130) D 10/03/18 19:55 BUN/Creatinine Ratio 24.0 (9.0-21.6) H 10/03/18 19:55 Random Glucose 297 mg/dL (70-110) H 10/03/18 19:55 Calcium 9.4 mg/dL (7.9-10.9) 10/03/18 19:55 Calcium Adj for Albumin 9.3 mg/dL (8.4-10.2) 10/03/18 19:55 Total Bilirubin 0.3 mg/dL (0.0-1.1) 10/03/18 19:55 AST 21 U/L (0-48) 10/03/18 19:55 ALT 27 U/L (19-67) 10/03/18 19:55 Alkaline Phosphatase 77 U/L (50-170) 10/03/18 19:55 Troponin I 0.158 ng/mL (0.00-0.10) H* 10/04/18 07:25 Total Protein 7.7 gm/dL (6.2-8.2) 10/03/18 19:55 Albumin 3.7 gm/dl (3.4-5.0) 10/03/18 19:55 TSH 1.070 uIU/mL (0.358-3.74) 10/03/18 19:55 Assessment/Plan - Assessment/Plan (1) SVT (supraventricular tachycardia) Assessment: resolved with adenosine. will start her on metoprolol tartrate 50 mg PO BID. Problem: Resolved (2) Elevated troponin Assessment: likely due to increased demand ischemia due to tachyarrythmia and LVH. will schedule her a nuclear threadmill stress test as outpatient. will put her on baby ASA and BBlocker. will make an appointment with cardiology in [facility]. Problem: Acute (3) Acute maxillary sinusitis, unspecified Assessment: will change her antibiotic to amoxicillin as she has not had problems with PCN before jus to be on the safe side and continue with her flonase. Problem: Acute (4) Diabetes mellitus Assessment: continue with home medications. Problem: Chronic Qualifiers: Diabetes mellitus type: type 2 Diabetes mellitus complication status: without complication (5) Generalized anxiety disorder Assessment: continue with home medications Problem: Chronic
[2018-10-04] MEDS ORDERED: FLUTICASONE PROPIONATE 120 SPRAY INHALER NS SCH (09:00)
[2018-10-04] MEDS ORDERED: INSULIN GLARGINE,HUM.REC.ANLOG 100 UNITS/ML VIAL SC SCH (09:00)
--- NOTE | 2018-10-04 09:11 | DS ---
(1) SVT (supraventricular tachycardia) Problem: Resolved (2) Elevated troponin Problem: Acute (3) Acute maxillary sinusitis, unspecified Problem: Acute (4) Diabetes mellitus Problem: Chronic Qualifiers: Diabetes mellitus type: type 2 Diabetes mellitus complication status: without complication (5) Generalized anxiety disorder Problem: Chronic Description of Stay: Cristy Roman, is a 48-year-old white female, patient of Dr. Solomon, with past medical history of generalized anxiety disorder, diabetes mellitus type 2, recent episode of SVT 2 months ago, recent diagnosis of acute sinusitis and started on Cefdinir, who was admitted on 10/03/2018 for lightheadedness. The patient was seen by her primary care physician for acute sinusitis and was started on Ceftin year 2-3 days ago. She was told that it could going to bronchitis. Yesterday she felt lightheaded after taking her antibiotic and was worried and went to our emergency room. She denied chest pain or palpitations or shortness of breath. She was found to be in supraventricular tachycardia with a ventricular rate of 192. She was given IV adenosine 6 mg x 1 and converted to normal sinus tachycardia. Her troponin was elevated at 0.168 and the ED physician was able to talk to the cardiology in [facility] and they recommended to put her in for observation and put her on a beta rebecca and to schedule a follow-up with them. The patient overnight has been in normal sinus rhythm. Her repeat troponin is 0.15. it is likely due to increased demand ischemia to tachyarrythmia and LVH. Her EKG showed normal sinus rhythm with probable left ventricular hypertrophy by voltage criteria consider normal variant. She is chest pain-free. We will schedule her a nuclear treadmill stress test as an outpatient and will discharge her on Metoprolol tartrate 50 mg PO BID and Baby ASA 81 mg PO qd. We will schedule her a cardiology appointment with [facility]. Will change her Cefdinir to amoxicillin. Follow up with her PCP in 1 week. Procedures Performed: none Results and Findings: Lab Pending Results 10/03/18 19:55: WBC 12.8 H, RBC 5.15, Hgb 16.3 H, Hct 46.4, MCV 90.1, MCH 31.7 H, MCHC 35.1, RDW 12.9, Plt Count 264, MPV 11.1, Immature Gran % (Auto) 0.50 H, Immature Gran # (Auto) 0.06 H, Neutrophils % 71.4, Lymphocytes % 22.1, Monocytes % 3.9, Eosinophils % 1.6, Basophils % 0.5, Nucleated RBC % 0.0, Neutrophils # 9.1 H, Lymphocytes # 2.83, Monocytes # 0.5, Eosinophils # 0.2, Absolute Basophils 0.1 10/03/18 19:55: Sodium 137, Plasma Sodium 140, Potassium 3.8, Chloride 102, Carbon Dioxide 26.4, Anion Gap 12.4, BUN 18, Creatinine 0.75, Est GFR (Non-Af Amer) 87 D, BUN/Creatinine Ratio 24.0 H, Random Glucose 297 H, Calcium 9.4, Calcium Adj for Albumin 9.3, Total Bilirubin 0.3, AST 21, ALT 27, Alkaline Phos phatase 77, Troponin I 0.164 H*, Total Protein 7.7, Albumin 3.7, TSH 1.070 10/04/18 07:25: Troponin I 0.158 H* Discharge Location: Home Disposition: Home self-care Condition: Stable Discharge Activity: Activity as tolerated Discharge Diet: Consistent carbs Referrals: Blanca Solomon MD [Primary Care Provider] - Additional Patient Instructions (free text): Schedule a cardiology appointment in [facility]'s, elevated troponin. Follow with PCP in 1 week. Prescriptions (Any new or edited meds): Amoxicillin 500 mg PO BID #14 cap Aspirin [Aspirin EC] 81 mg PO DAILY #30 tablet. Metoprolol Tartrate [Lopressor] 50 mg PO Q12H #60 tab Complete Home Medications List: Complete Home Medication List: Blood-Glucose Meter [Blood Glucose Monitoring] 1 ea MC DAILY 04/19/17 Fluticasone Propionate [Flonase] 2 spray NS DAILY PRN 04/19/17 Loratadine [Claritin] 10 mg PO DAILY PRN 04/19/17 alprazolam 0.5 mg tablet 0.25 - 0.5 mg PO Q8H PRN #30 tab 05/28/18 Melatonin 10 mg PO HS 08/22/18 Insulin Glargine,Hum.rec.anlog [Lantus Solostar] 10 unit SQ DAILY #7 insuln.pen 08/23/18 flash glucose scanning reader See Dose Instructions .ROUTE .MEDSUPPLY #1 ea 01/08/19 flash glucose sensor kit See Dose Instructions .ROUTE .MEDSUPPLY #1 ea 09/03/18 metformin 1,000 mg tablet 1,000 mg PO BID #60 tab 09/09/18 Amoxicillin 500 mg PO BID #14 cap 10/04/18 Aspirin [Aspirin EC] 81 mg PO DAILY #30 tablet. 10/04/18 Metoprolol Tartrate [Lopressor] 50 mg PO Q12H #60 tab 10/04/18
[2018-10-04 10:33] VITALS: BP 176/85
[2018-10-04] MEDS ORDERED: MELATONIN 3,000 MCG TABLET PO SCH (21:00)
== END 2018-10-04 10:50 | disposition home or self-care (01) ==
LOC: ER 19:20 → MS 19:20
PROVIDERS: ADMIT Internal Medicine; ATTEND Internal Medicine
CPT/HCPCS: 36415; 80053; 84443; 84484; 85025; 93005; 96361; 96372; 96374; 99285; G0378